=== PATIENT | male | born 1970 | race Caucasian/White ===

== ENCOUNTER 2024-09-25 06:03 | Day surgery (SDC) | payer BC, SELFPAY ==
[2024-09-18 13:16] VITALS: BMI 45.6
[2024-09-18 13:49] LABS: % Basophils 0.7 % (0-2); % Eosinophils 0.7 % (0-6); % Immature Granulocytes 0.7 % (0-0.5); % Lymphocytes 27.5 % (20.5-51.1); % Monocytes 12.7 % (1.7-9.3); % Neutrophils 57.7 % (42.2-75.2); Absolute Lymphocytes 1.6 10^3/uL (1.2-3.4); Absolute Monocytes 0.8 10^3/uL (0.1-0.6); Absolute Neutrophils 3.5 10^3/uL (1.4-6.5); Hemoglobin 15.9 g/dL (13.0-18.0); Mean Corp Hgb Conc. 35.3 g/dL (33.0-37.0); Mean Corpuscular Volume 93.4 fL (80.0-94.0); Mean Platelet Volume 10.1 fL (7.4-10.4); Nucleated Red Blood Cells % 0 % (-); Platelet Count 170 10^3/uL (130-400); Red Blood Cell Count 4.82 10^6/uL (4.70-6.10)
[2024-09-18 14:30] LABS: ALT (SGPT) 30 U/L (0-50); AST (SGOT) 29 U/L (17-59); Albumin 4.6 g/dl (3.5-5.0); Alkaline Phosphatase 71 U/L (38-126); Blood Urea Nitrogen 15 mg/dl (9-20); Calcium 9.3 mg/dl (8.4-10.2); Carbon Dioxide 26 mmol/L (22-30); Chloride 100 mmol/L (98-107); Estimated Creatinine Clearance 122 ml/min; Glucose 230 mg/dl (70-99); Potassium 4.1 mmol/L (3.5-5.1); Sodium 139 mmol/L (135-145); Total Bilirubin 1.1 mg/dl (0.2-1.3); eGFR > 60.00
[2024-09-25] VITALS (11 sets, daily range): BP systolic 110–137; BP diastolic 64–96; BMI 42.4
[2024-09-25 06:51] LABS: Glucose - Point of Care 210 mg/dl (70-99)
[2024-09-25 08:54] LABS: ACT-LR - POC 311 Seconds (116-155)
[2024-09-25 09:16] LABS: ACT-LR - POC 350 Seconds (116-155)
[2024-09-25 09:38] LABS: ACT-LR - POC 380 Seconds (116-155)
--- NOTE | 2024-09-25 10:06 | ITS.CL.ABL ---
Cardiac Sonographer - Ablation
Ablation
Procedure Report:
AFIB ablation:
Mr. Wiley is a very pleasant 54 yr old gentleman with symptomatic paroxysmal AF is recommended for atrial fibrillation ablation.
Date of the Procedure:
09/25/2024
Indications:
Paroxysmal atrial fibrillation
Pre-Operative Diagnosis:
Paroxysmal atrial fibrillation
Post-Operative Diagnosis:
Paroxysmal atrial fibrillation
Procedure Performed:
Atrial fibrillation ablation with Pulsed-Field approach for pulmonary vein isolation
Performing Physician:
Diya Almonte MD
Assistants:
EP staff
Anesthesia:
See anesthesia records
Detailed Description of the Procedure:
Written informed consent was obtained from the patient after a full explanation of the risks and benefits of the procedure including the risks of sedation and anesthesia.
The patient was brought to the electrophysiology laboratory in stable condition in fasting state. Continuous electrocardiographic and hemodynamic monitoring was initiated.
The initial rhythm was sinus rhythm.
The procedure site was meticulously prepared with surgical scrub and allowed to dry with no pooling. Sterile draping was applied to cover the procedure site. The image intensifier was draped with sterile bag and positioned over the patient. After
infusion of local anesthetic, vascular access was obtained under ultrasound guidance and sheaths were placed over guide wire as detailed below.
Sheath and Catheter Placement:
The following catheters / sheaths were placed
Sheaths:
��������� 17Fr steerable sheath (Faradrive�, [employer]) in right femoral
��������� 9Fr in right femoral vein
Catheters:
��������� CARTO Pentaray mapping catheter � at locations of RA, LA
��������� Farawave� PFA catheter
��������� ICE catheter - at locations of RA, SVC, and RV.
Intracardiac ECHO:
An 8-Macanese AcuNav intracardiac ECHO (ICE) probe was advanced through the 9-Macanese sheath in the right femoral vein into the right atrium under fluoroscopic and ICE ultrasound image guidance and a baseline ECHO study was performed. The left atrial
size was dilated. There was moderate tricuspid regurgitation. The aortic valve was grossly normal. There was normal left ventricular systolic functions. There is trace significant pericardial effusion. All the four veins were identified and has flow
identified. There was good flow noted in the RUBA.
The pacemaker wires were identified in RA and RV.
During the procedure, ICE was used for monitoring of complications, guidance of trans-septal puncture, monitor the catheter position and tracking ablation lesions. No change in the pericardial space noted throughout the procedure.
Trans-septal Puncture:
Heparin was initiated and infused to maintain appropriate ACT. A pigtail guidewire was advanced through the 8-Macanese sheath in the right femoral vein into the superior vena cava under fluoroscopic and ICE guidance. The 9-Macanese sheath was exchanged
for a Faradrive sheath which was advanced into the superior vena cava. A transseptal VersaCross RF pigtail via Faradrive connect system was utilized to perform the trans-septal puncture. The apparatus was withdrawn until it was in contact with the
fossa ovalis. The position was adjusted based on fluoroscopy and ultrasound images from ICE. Under fluoroscopic, hemodynamic and ICE ultrasound guidance, left atrium was cannulated by applying RF energy. Once atrial septum was cannulated, the
pigtail wire was advanced into the left atrium. The guide wire was advanced into the left superior pulmonary vein. Both the sheath and the dilator was advanced into the left atrium. The dilator was withdrawn. Blood was aspirated from the Faradrive
sheath and arterial blood confirmed. The sheath was flushed. Saline injection noted into the left atrium on ICE. The mapping catheter was advanced in the sheath into the left pulmonary vein. Left atrial pressure was measured.
3D Electroanatomic Mapping:
Using the Pentaray catheter advanced through sheath into the left atrium, an electroanatomic map (EAM) of the left atrium was created using CARTO mapping system. The map was used for localization of catheter position and tacking of ablation lesions.
The EAM of the left atrium showed 4 pulmonary veins with all 4 veins electrically connected to the body the LA. It showed normal voltage in the LA in sinus rhythm. The LA was dilated in size.
Following the EAM, preparation were made for ablation.
Ablation:
Ablation # 1: Pulmonary vein Isolation:
Glycopyrrolate 0.2 mg was given prior to the placement of ablation. Using [employer] Lumens pulsed field ablation system, pulmonary vein isolation was achieved. First the ablation catheter was placed in the LSPV and ostial ablation lesions were performed in
an �[place]� formation of the Farawave configuration and a counter clock contreras rotation was done and ablated to cover the area between the electrodes. Then the catheter was placed on the antral location in �[place]� configuration and multiple ablation
lesions were placed circumferentially on the antrum of the vein.
In the similar fashion, the LIPV were isolated.
Then the catheter was moved to right sided veins. The ostial and antral ablations were placed as noted above.
EPS and Confirmation of the PVI and bidirectional block:
Following achievement of entrance block at the pulmonary veins, pacing from the Pentaray catheter in each of the four veins at 10 milliamps for 2 milliseconds showed entrance and exit block. All PVI were rechecked at the end of the case and remained
isolated. Entrance and exit block were demonstrated in all veins.
Post ablation Electroanatomic mapping:
Once ablation was completed, the EAM of the LA was done again in sinus rhythm with excellent demarcation of LA myocardium and isolated antral tissue. There was no scar noted.
The RUBA had healthy signals and was not isolated.
Procedure End
ICE study was done again that showed no epicardial accumulation. No complications noted.
Following the completion of the EP study, catheters were removed. Protamine 40 mg was given at the end of the procedure and ACT was checked repeatedly.
The 17 Fr sheath was downgraded to 10Fr and manual pressure applied. The sheaths were removed and hemostasis achieved with �VASCADE� and manual compression after acceptable ACT is achieved.
Left atrial Pressure:
Mean LA pressure was 25mmHg
Mean RA pressure was 12mmHg.
Estimated Blood loss:
<10 cc
Specimens Removed:
None.
Implants / Devices:
None
Urine output:
None
Packs / Drains/ Tubes:
None
Instrument / Sponge Count Correct:
Yes
Complications of the Procedure:
None
Condition of Patient at Time of Transfer:
Hemodynamically stable with no neurological or vascular compromise.
Summary:
Successful atrial fibrillation ablation with Pulsed Field approach for pulmonary vein isolation, and posterior wall isolation. .
Figures from the Procedure:
Figure 1: The electroanatomic mapping (EAM) of the left atrium with bipolar voltage (purple indicates normal electrical activity with palacios as no myocardial muscle electric activity indicating a line of block or scar.
[2024-09-25] MEDS: TYLENOL 650 MG PO (10:42)
[2024-09-25] MEDS: ANESTHETIC LOZENGE 1 LOZENGE PO (10:43)
[2024-09-25 10:54] LABS: Glucose - Point of Care 270 mg/dl (70-99)
[2024-09-25 13:18] LABS: Glucose - Point of Care 280 mg/dl (70-99)
--- NOTE | 2024-09-25 13:37 | W.PN.UPDATE ---
Update Note
Progress Note Update
54 yo WM s/p PVI (same day). He denies cp, sob, damion diet, voiding, amb w/o dizziness, EKG Vpaced, R fem site c/d/i no HT, soft. He will resume Eliquis tonight and continue diltiazem. Activity restrictions reviewed. He will f/u [facility] in 2 weeks. He is
for d/c home after 2pm if groin remains stable.
== END 2024-09-25 14:00 | disposition home or self-care (01) ==
LOC: CATH 06:03
PROVIDERS: ATTENDING PHYSICIAN Internal Medicine Cardiovascular Disease; FAMILY PHYSICIAN Family Medicine
DX: I48.0 Paroxysmal atrial fibrillation (principal); I10 Essential (primary) hypertension; Z87.891 Personal history of nicotine dependence; E11.9 Type 2 diabetes mellitus without complications; Z95.0 Presence of cardiac pacemaker
CPT/HCPCS: C1892; C1732; 36415; 80053; 82962; 85025; 85347; 86850; 86900; 86901; 93005; 93656; 93657; C1733; C1766